=== PATIENT | male | born 1975 ===

== ENCOUNTER 2023-06-06 18:30 | Emergency (ER) | payer OTHER ==
[~2023-06-06] VITALS: Ht 180.3 cm; Wt 161.6 kg
[2023-06-06 19:28] VITALS: BP 149/96
== END 2023-06-06 19:33 | disposition home or self-care (01) ==
LOC: ED 18:30
DX: S39.011A Strain of muscle, fascia and tendon of abdomen, initial encounter (principal); X50.0XXA Overexertion from strenuous movement or load, initial encounter; Z88.5 Allergy status to narcotic agent; Z88.8 Allergy status to other drugs, medicaments and biological substances
CPT/HCPCS: 99283; A9270